=== PATIENT | male | born 1995 | race Caucasian/White ===

== ENCOUNTER → 2020-08-29 | Outpatient (CLI) | payer OTHER ==
[2020-08-29 15:21] LABS: HEMOGLOBIN 16.1 gm/dl (14.0-17.5); RED BLOOD COUNT 5.33 M/UL (4.20-5.50)
[2020-08-29 16:14] LABS: BUN/CREATININE RATIO 13 (0-10)
[2020-08-30 07:11] LABS: VITAMIN D, 25-HYDROXY 26.8 ng/mL (30.0-100.0)
== END ==
LOC: LAB 13:24
PROVIDERS: Physician Assistant Medical
DX: R53.83 Other fatigue (principal); R10.84 Generalized abdominal pain
CPT/HCPCS: 80053; 82607; 84443; 85027

== ENCOUNTER → 2020-09-04 | Outpatient (CLI) | payer OTHER | LOC: KOH-I 08:00 | DX: R41.3 Other amnesia (principal); R51.9 Headache, unspecified; R42 Dizziness and giddiness; J32.0 Chronic maxillary sinusitis | CPT/HCPCS: 70450 ==